=== PATIENT | female | born 1990 | race Caucasian/White ===

== ENCOUNTER → 2016-05-25 | Outpatient (CLI) | payer OTHER ==
[~2016-05-25] MED LIST: ADDE20XR PO; OMEP20TA PO
[2016-05-25 12:30] LABS: RHEUMATOID FACTOR TRIGGER LESS THAN 10.0 IU/ML (0.0-14.9)
[2016-05-25 12:36] LABS: MEAN CORPUSCULAR HEMOGLOBIN 29.6 PG (27.0-34.0); PLATELET COUNT 252 TH/MM3 (150-450); RED BLOOD COUNT 4.36 MIL/MM3 (4.00-5.30); RED CELL DISTRIBUTION WIDTH 13.2 % (11.6-17.2); REVIEW FLAG FINAL; WHITE BLOOD COUNT 4.4 TH/MM3 (4.0-11.0)
[2016-05-25 12:56] LABS: WESTERGREN SEDIMENTATION RATE 4 mm/hr (0-20)
== END ==
LOC: CLAB 11:26
PROVIDERS: ATTEND Family Medicine
DX: M06.4 Inflammatory polyarthropathy (principal)
CPT/HCPCS: 36415; 85027; 85652; 86038; 86200; 86430

== ENCOUNTER → 2016-08-20 | Outpatient (CLI) | payer OTHER | LOC: CLAB 08:15 | PROVIDERS: ATTEND Family Medicine | DX: R53.83 Other fatigue (principal) | CPT/HCPCS: 36415; 86787 ==

== ENCOUNTER → 2016-10-01 | Outpatient (CLI) | payer OTHER ==
[2016-10-01 07:56] LABS: BLOOD, URINE NEG (NEG); GLUCOSE,URINE NEG (NEG); KETONE, URINE NEG (NEG); NITRITE,URINE NEG (NEG); PH, URINE 5.5 (5.0-8.5); URINE COLOR YELLOW (YELLW/STRAW)
[2016-10-01 08:36] LABS: RUBELLA IGG ANTIBODY GREATER THAN 500.0 IU/mL (10.0-500.0); RUBELLA STATUS IMMUNE (IMMUNE)
[2016-10-08 19:51] LABS: MEASLES AB IGG >300.00 AU/mL (()); MEASLES AB IGM <1:20 (())
== END ==
LOC: CLAB 07:31
PROVIDERS: ATTEND Family Medicine
DX: Z00.00 Encounter for general adult medical examination without abnormal findings (principal); Z23 Encounter for immunization
CPT/HCPCS: 36415; 81001; 86317; 86735; 86762; 86765

== ENCOUNTER 2016-12-04 06:36 | Emergency (ER) | payer OTHER ==
[~2016-12-04] VITALS: Ht 152.4 cm; Wt 51.0 kg
[2016-12-04 06:37] VITALS: BP 185/86; PULSE 94; RESP 20; TEMP 98.4; O2SAT 100
[2016-12-04] MEDS ORDERED: ADDE20 PO (06:49)
[2016-12-04] MEDS ORDERED: SODIUM CHLOR 0.9% 1000 ML INJ 1,000 ML IV SCH (07:05)
--- NOTE | 2016-12-04 07:09 | PD ---
HPI Chief Complaint: Flank/Kidney Pain Time Seen by Provider: 07:01 Travel History International Travel<30 days: No Contact w/Intl Traveler<30days: No Traveled to known affect area: No History of Present Illness HPI The patient is a 26-year-old female who presents to the emergency department for right flank pain. The patient states she developed hematuria yesterday, approximately 3 hours prior to arrival developed right flank pain. The pain is located over the right mid back and radiates into the right flank. She does complain of mild nausea secondary to pain but denies any vomiting, diarrhea, or constipation. Last menstrual cycle was 3 weeks ago. She does note hematuria but denies any dysuria, frequency, or urgency. She denies any current vaginal bleeding or discharge. She denies any history of previous nephrolithiasis. Symptoms are moderate, there are no alleviating or exacerbating factors. The patient denies any previous abdominal surgeries. PFSH Past Medical History ADHD: Yes Migraines: Yes Tetanus Vaccination: < 5 Years Influenza Vaccination: Yes ?: Not LMP: 3 weeks ago Past Surgical History Surgical History: No Previous Surgery Social History Alcohol Use: Yes (occ) Tobacco Use: No Substance Use: No Allergies-Medications (Allergen,Severity, Reaction): Coded Allergies: No Known Allergies (Unverified , 12/04/16) Reported Meds & Prescriptions Reported Meds & Active Scripts Active Reported Adderall (Amphetamine-Dextroamphetamine) 20 Mg Tab 20 Mg PO DAILY Avoid late evening doses. Space doses at least 4 to 6 hours if more than once/day dosing. Review of Systems Except as stated in HPI: all other systems reviewed are Neg General / Constitutional: No: Fever Cardiovascular: No: Chest Pain or Discomfort Respiratory: No: Shortness of Breath Gastrointestinal: Positive: Nausea, No: Vomiting, Diarrhea, Abdominal Pain Genitourinary: Positive: Hematuria, Flank Pain, No: Urgency, Frequency, Dysuria , Discharge, Vaginal Bleeding Musculoskeletal: No: Myalgias, Weakness Skin: No Rash Physical Exam Narrative GENERAL: Awake, alert, pleasant 26-year-old female who appears her stated age and is in no acute respiratory distress. SKIN: Focused skin assessment warm/dry. HEAD: Atraumatic. Normocephalic. EYES: Pupils equal and round. No scleral icterus. No injection or drainage. ENT: No nasal bleeding or discharge. Mucous membranes pink and moist. NECK: Trachea midline. No JVD. CARDIOVASCULAR: Regular rate and rhythm. No murmur appreciated. RESPIRATORY: No accessory muscle use. Clear to auscultation. Breath sounds equal bilaterally. GASTROINTESTINAL: Abdomen soft, mild right flank tenderness. Back: Right CVA tenderness. Pelvic: The exam was performed in the presence of a female nurse. External examination reveals no rashes or lesions. Speculum examination reveals scant white discharge. The cervix is closed, there is white to brown discharge at the cervical os. MUSCULOSKELETAL: No obvious deformities. No clubbing. No cyanosis. No edema. NEUROLOGICAL: Awake and alert. No obvious cranial nerve deficits. Motor grossly within normal limits. Normal speech. PSYCHIATRIC: Appropriate mood and affect; insight and judgment normal. Data Data Last Documented VS Vital Signs Date Time Temp Pulse Resp B/P (MAP) Pulse Ox O2 Delivery O2 Flow Rate FiO2 12/04/16 08:59 18 12/04/16 07:25 82 132/68 (89) 98 Room Air 12/04/16 06:37 98.4 Orders Orders Urinalysis - C+S If Indicated (12/04/16 06:49) Ed Urine Pregnancytest Poc (12/04/16 06:49) Complete Blood Count With Diff (12/04/16 06:49) Comprehensive Metabolic Panel (12/04/16 06:49) Lipase (12/04/16 06:49) Ct Abd/Pel W/O Iv Contrast (12/04/16 07:05) Iv Access Insert/Monitor (12/04/16 07:05) Ecg Monitoring (12/04/16 07:05) Oximetry (12/04/16 07:05) Morphine Inj (Morphine Inj) (12/04/16 07:15) Ondansetron Inj (Zofran Inj) (12/04/16 07:15) Sodium Chlor 0.9% 1000 Ml Inj (Ns 1000 M (12/04/16 07:05) Sodium Chloride 0.9% Flush (Ns Flush) (12/04/16 07:15) Ketorolac Inj (Toradol Inj) (12/04/16 07:15) Gc And Chlamydia Pcr (12/04/16 08:06) Wet Prep Profile (12/04/16 08:06) Us Pelvis Comp W Dop Transvag (12/04/16 ) Labs Laboratory Tests Test 12/04/16 06:50 12/04/16 08:35 White Blood Count 7.0 TH/MM3 Red Blood Count 4.39 MIL/MM3 Hemoglobin 13.0 GM/DL Hematocrit 38.8 % Mean Corpuscular Volume 88.4 FL Mean Corpuscular Hemoglobin 29.7 PG Mean Corpuscular Hemoglobin Concent 33.6 % Red Cell Distribution Width 13.2 % Platelet Count 344 TH/MM3 Mean Platelet Volume 6.9 FL Neutrophils (%) (Auto) 46.7 % Lymphocytes (%) (Auto) 41.8 % Monocytes (%) (Auto) 9.4 % Eosinophils (%) (Auto) 1.4 % Basophils (%) (Auto) 0.7 % Neutrophils # (Auto) 3.3 TH/MM3 Lymphocytes # (Auto) 2.9 TH/MM3 Monocytes # (Auto) 0.7 TH/MM3 Eosinophils # (Auto) 0.1 TH/MM3 Basophils # (Auto) 0.1 TH/MM3 CBC Comment DIFF FINAL Differential Comment Urine Color LIGHT-YELLOW Urine Turbidity CLEAR Urine pH 5.5 Urine Specific [place] 1.005 Urine Protein NEG mg/dL Urine Glucose (UA) NEG mg/dL Urine Ketones NEG mg/dL Urine Occult Blood NEG Urine Nitrite NEG Urine Bilirubin NEG Urine Urobilinogen LESS THAN 2.0 MG/DL Urine Leukocyte Esterase NEG Urine WBC LESS THAN 1 /hpf Urine Squamous Epithelial Cells 1 /hpf Urine Bacteria RARE /hpf Microscopic Urinalysis Comment CULT NOT INDICATED Blood Urea Nitrogen 15 MG/DL Creatinine 0.70 MG/DL Random Glucose 86 MG/DL Total Protein 8.2 GM/DL Albumin 4.7 GM/DL Calcium Level 9.2 MG/DL Alkaline Phosphatase 85 U/L Aspartate Amino Transf (AST/SGOT) 15 U/L Alanine Aminotransferase (ALT/SGPT) 28 U/L Total Bilirubin 0.4 MG/DL Sodium Level 140 MEQ/L Potassium Level 3.2 MEQ/L Chloride Level 106 MEQ/L Carbon Dioxide Level 25.2 MEQ/L Anion Gap 9 MEQ/L Estimat Glomerular Filtration Rate 100 ML/MIN Lipase 301 U/L Clue Cells (Wet Prep) NONE SEEN Vaginal Trichomonas (Wet Prep) NONE SEEN Vaginal Yeast (Wet Prep) NONE SEEN MDM Medical Decision Making Medical Screen Exam Complete: Yes Emergency Medical Condition: Yes Medical Record Reviewed: Yes Interpretation(s) Laboratory Tests Test 12/04/16 06:50 12/04/16 08:35 White Blood Count 7.0 TH/MM3 Red Blood Count 4.39 MIL/MM3 Hemoglobin 13.0 GM/DL Hematocrit 38.8 % Mean Corpuscular Volume 88.4 FL Mean Corpuscular Hemoglobin 29.7 PG Mean Corpuscular Hemoglobin Concent 33.6 % Red Cell Distribution Width 13.2 % Platelet Count 344 TH/MM3 Mean Platelet Volume 6.9 FL Neutrophils (%) (Auto) 46.7 % Lymphocytes (%) (Auto) 41.8 % Monocytes (%) (Auto) 9.4 % Eosinophils (%) (Auto) 1.4 % Basophils (%) (Auto) 0.7 % Neutrophils # (Auto) 3.3 TH/MM3 Lymphocytes # (Auto) 2.9 TH/MM3 Monocytes # (Auto) 0.7 TH/MM3 Eosinophils # (Auto) 0.1 TH/MM3 Basophils # (Auto) 0.1 TH/MM3 CBC Comment DIFF FINAL Differential Comment Urine Color LIGHT-YELLOW Urine Turbidity CLEAR Urine pH 5.5 Urine Specific [place] 1.005 Urine Protein NEG mg/dL Urine Glucose (UA) NEG mg/dL Urine Ketones NEG mg/dL Urine Occult Blood NEG Urine Nitrite NEG Urine Bilirubin NEG Urine Urobilinogen LESS THAN 2.0 MG/DL Urine Leukocyte Esterase NEG Urine WBC LESS THAN 1 /hpf Urine Squamous Epithelial Cells 1 /hpf Urine Bacteria RARE /hpf Microscopic Urinalysis Comment CULT NOT INDICATED Blood Urea Nitrogen 15 MG/DL Creatinine 0.70 MG/DL Random Glucose 86 MG/DL Total Protein 8.2 GM/DL Albumin 4.7 GM/DL Calcium Level 9.2 MG/DL Alkaline Phosphatase 85 U/L Aspartate Amino Transf (AST/SGOT) 15 U/L Alanine Aminotransferase (ALT/SGPT) 28 U/L Total Bilirubin 0.4 MG/DL Sodium Level 140 MEQ/L Potassium Level 3.2 MEQ/L Chloride Level 106 MEQ/L Carbon Dioxide Level 25.2 MEQ/L Anion Gap 9 MEQ/L Estimat Glomerular Filtration Rate 100 ML/MIN Lipase 301 U/L Clue Cells (Wet Prep) NONE SEEN Vaginal Trichomonas (Wet Prep) NONE SEEN Vaginal Yeast (Wet Prep) NONE SEEN Last Impressions Abdomen/Pelvis CT 12/04/16 0705 Signed Impressions: Service Date/Time: Sunday, December 04, 2016 07:28 - CONCLUSION: No acute disease. Hong Steel MD Abdomen/Pelvis/Transvag US 12/04/16 0000 Signed Impressions: Service Date/Time: Sunday, December 04, 2016 09:05 - CONCLUSION: Negative exam. Multiple physiologic follicular type cysts in both ovaries. No free fluid. Henri Morataya MD Differential Diagnosis Differential diagnosis includes nephrolithiasis, hydronephrosis, pyelonephritis , hemorrhagic cystitis, ovarian cyst, atypical appendicitis, PID, cervicitis, ectopic , . Narrative Course IV was established, labs are drawn and sent, and the patient was placed on cardiac telemetry monitoring and continuous pulse oximetry monitoring. Bedside UA test was negative, UA was sent to lab. The patient was administered morphine, Zofran, Toradol, and IV fluids. Noncontrast CT of the abdomen and pelvis was performed to evaluate for possible nephrolithiasis. UA was unremarkable. CBC and CMP are unremarkable. CT the abdomen and pelvis reveals no acute disease. The patient has significant right sided pain that radiates to the back, will require ultrasound and pelvic examination. The patient was reevaluated at 8:03 AM. Pelvic exam was performed, wet prep and gonorrhea/chlamydia were sent to lab. The patient's pain had improved after pain medications were administered. Wet prep was negative. Ultrasound reveals bilateral physiologic follicular cyst, otherwise unremarkable. The patient was reevaluated at 10 AM, her pain had slightly returned. The patient was administered a second dose of morphine. The patient is advised to monitor for rash that could be consistent with shingles over the next 2-3 days. Return if symptoms worsen or progress. Diagnosis Primary Impression: Right flank pain Patient Instructions: General Instructions Additional Instructions: Please provide the patient a copy of her ultrasound results and CT results as well as laboratory results at discharge. Medications as directed. Monitor for rash that could be consistent with shingles. Return if symptoms worsen or progress. Med/Other Pt SpecificInfo: Prescription(s) given Scripts Hydrocodone-Acetaminophen ([place]) 5-325 mg Tab 1 TAB PO Q6H Y for PAIN, #12 TAB 0 Refills Prov: Sarbjit Quezada MD 12/04/16 Ibuprofen (Ibuprofen) 600 Mg Tab 600 MG PO Q6H Y for Pain/Inflammation, #20 TAB 0 Refills Prov: Sarbjit Quezada MD 12/04/16 Disposition: 01 DISCHARGE HOME Condition: Stable Sarbjit Quezada MD Dec 04, 2016 07:09
[2016-12-04 07:12] LABS: BACTERIA, URINE RARE /hpf; BILIRUBIN, URINE NEG (NEG); BLOOD, URINE NEG (NEG); GLUCOSE,URINE NEG (NEG); KETONE, URINE NEG (NEG); NITRITE,URINE NEG (NEG); PH, URINE 5.5 (5.0-8.5); SQUAMOUS EPITHELIAL CELL URINE 1 /hpf (0-5); URINE COLOR LIGHT-YELLOW (YELLW/STRAW); URINE LEUKOCYTE ESTERASE NEG (NEG)
[2016-12-04 07:13] LABS: AUTOMATED NEUTROPHIL # 3.3 TH/MM3 (1.8-7.7); BASOPHIL # 0.1 TH/MM3 (0-0.2); BASOPHIL % 0.7 % (0.0-2.0); EOSINOPHIL # 0.1 TH/MM3 (0-0.4); EOSINOPHIL % 1.4 % (0.0-4.0); HEMATOCRIT 38.8 % (35.0-46.0); LYMPH % 41.8 % (9.0-44.0); LYMPHOCYTE # 2.9 TH/MM3 (1.0-4.8); MEAN CELL VOLUME 88.4 FL (80.0-100.0); MEAN CORPUSCULAR HEMOGLOBIN 29.7 PG (27.0-34.0); MEAN CORPUSCULAR HGB CONC 33.6 % (32.0-36.0); MEAN PLATELET VOLUME 6.9 FL (7.0-11.0); MONO % 9.4 % (0.0-8.0); MONOCYTE # 0.7 TH/MM3 (0-0.9); NEUT % 46.7 % (16.0-70.0); PLATELET COUNT 344 TH/MM3 (150-450); RED BLOOD COUNT 4.39 MIL/MM3 (4.00-5.30); RED CELL DISTRIBUTION WIDTH 13.2 % (11.6-17.2)
[2016-12-04] MEDS ORDERED: ONDANSETRON HCL 4 MG/2 ML VIAL IVP ONE (07:15)
[2016-12-04] MEDS ORDERED: MORPHINE SULFATE 4 MG/ML INJ IV PUSH ONE ×2 (07:15→10:15)
[2016-12-04] MEDS ORDERED: SODIUM CHLORIDE 0.9% FLUSH 10 ML FLUSH IV FLUSH PRN (07:15)
[2016-12-04] MEDS ORDERED: KETOROLAC TROMETHAMINE 30 MG/ML (IVP) VIAL IVP ONE (07:15)
[2016-12-04 07:20] LABS: ALBUMIN 4.7 GM/DL (3.4-5.0); ALT (GPT) 28 U/L (10-53); AST (GOT) 15 U/L (15-37); BICARBONATE 25.2 MEQ/L (21.0-32.0); BLOOD UREA NITROGEN 15 MG/DL (7-18); CALCIUM 9.2 MG/DL (8.5-10.1); CHLORIDE 106 MEQ/L (98-107); GLOMERULAR FILTRATION RATE 100 ML/MIN (>89); GLUCOSE,RANDOM 86 MG/DL (74-106); LIPASE 301 U/L (73-393); SODIUM (NA) 140 MEQ/L (136-145)
[2016-12-04 07:22] LABS: ALKALINE PHOSPHATASE 85 U/L (45-117); TOTAL BILIRUBIN ADULT 0.4 MG/DL (0.2-1.0); TOTAL PROTEIN 8.2 GM/DL (6.4-8.2)
[2016-12-04 07:25] VITALS: BP 132/68; PULSE 82; RESP 17; O2SAT 98
--- NOTE | 2016-12-04 08:02 | RADRPT ---
EXAM DATE/TIME: 12/04/2016 07:28 [facility] COMPARISON: No previous studies available for comparison. INDICATIONS : Hematuria and right flank pain. ORAL CONTRAST: No oral contrast ingested. RADIATION DOSE: 6.91 CTDIvol (mGy) MEDICAL HISTORY : None SURGICAL HISTORY : None. ENCOUNTER: Initial ACUITY: 1 day PAIN SCALE: 8/10 LOCATION: Right flank TECHNIQUE: Volumetric scanning of the abdomen and pelvis was performed. Using automated exposure control and ad justment of the mA and/or kV according to patient size, radiation dose was kept as low as reasonably achievable to obtain optimal diagnostic quality images. DICOM format image data is available electro nically for review and comparison. FINDINGS: LOWER LUNGS: The visualized lower lungs are clear. LIVER: Homogeneous density without lesion. There is no dilation of the biliary tree. No calcified [place] es. SPLEEN: Normal size without lesion. PANCREAS: Within normal limits. KIDNEYS: Normal in size and shape. There is no mass, stone, or hydronephrosis. ADRENAL GLANDS: Within normal limits. VASCULAR: There is no aortic aneurysm. BOWEL/MESENTERY: The stomach, small bowel, and colon demonstrate no acute abnormality. There is no free intraperitone al air or fluid. The appendix is normal. ABDOMINAL WALL: Within normal limits. RETROPERITONEUM: There is no lymphadenopathy. BLADDER: No wall thickening or mass. REPRODUCTIVE: Within normal limits. INGUINAL: There is no lymphadenopathy or hernia. MUSCULOSKELETAL: Within normal limits for patient age. CONCLUSION: No acute disease. Hong Steel MD on December 04, 2016 at 7:47 Board Certified Radiologist. This report was verified electronically.
--- NOTE | 2016-12-04 09:48 | RADRPT ---
EXAM DATE/TIME: 12/04/2016 09:05 [facility] COMPARISON: No previous studies available for comparison. INDICATIONS : Pelvic pain. MEDICAL HISTORY : Migraine. Attention deficit hyperactivity disorder. Alcohol use. SURGICAL HISTORY : None. ENCOUNTER: Initial ACUITY: 1 day PAIN SCORE: 4/10 LOCATION: Bilateral pelvis MEASUREMENTS: UTERUS: 6.4 x 3.5 x 2.3 cm ENDOMETRIAL STRIPE: 2 mm RIGHT OVARY: 3.3 x 1.7 x 1.9 cm LEFT OVARY: 3.0 x 2.3 x 1.7 cm FINDINGS: UTERUS: The myometrium has homogeneous echotexture without mass. RIGHT OVARY: Ovary contains no mass or significant cystic lesion. Multiple follicular type cysts identified LEFT OVARY: Ovary contains no mass or significant cystic lesion. Multiple follicular type cysts identified. MISCELLANEOUS: No free fluid. CONCLUSION: Negative exam. Multiple physiologic follicular type cysts in both ovaries. No free fluid. Henri Morataya MD on December 04, 2016 at 9:46 Board Certified Radiologist. This report was verified electronically.
[2016-12-04] MEDS ORDERED: IBUP-232 PO (10:05)
[2016-12-04] MEDS ORDERED: NORC5TAB PO (10:05)
[2016-12-04 10:35] VITALS: BP 127/73; PULSE 76; RESP 15; O2SAT 98
== END 2016-12-04 11:00 | disposition home or self-care (01) ==
LOC: NEPC 06:36
DX: R10.9 Unspecified abdominal pain (principal); N83.202 Unspecified ovarian cyst, left side; N83.201 Unspecified ovarian cyst, right side; R31.9 Hematuria, unspecified; R11.0 Nausea; F90.9 Attention-deficit hyperactivity disorder, unspecified type; Z79.899 Other long term (current) drug therapy
CPT/HCPCS: 74176; 76830; 76856; 80053; 81001; 83690; 84703; 85025; 87210; 87491; 87591; 93975; 96361; 96374; 96375; 96376; 99285; J1885; J2270; J2405; J7030